=== PATIENT | male | born 1975 | race Caucasian/White ===

== ENCOUNTER 2020-02-26 12:45 | Inpatient (IN) ==
[2020-02-26] MEDS ORDERED: 0.9 % SODIUM CHLORIDE 1,000 ML IV ONE ×2 (13:07→17:31)
[2020-02-26] MEDS ORDERED: VANCOMYCIN 2,000 MG in 0.9 % SODIUM CHLORIDE 500 ML IV ONE (13:07)
[2020-02-26] MEDS ORDERED: PIPERACILLIN SODIUM/TAZOBACTAM 3.375 GM in DEXTROSE 5% IN WATER 50 ML IV ONE (13:07)
[2020-02-26] MEDS ORDERED: KETOROLAC 30 MG/ML VIAL IV ONE (13:07)
--- NOTE | 2020-02-26 13:12 | Emergency Department Note ---
Skin/Abscess/FB HPI General Chief complaint: Skin/Abscess/Foreign Body Stated complaint: cellulitis left leg Time Seen by Provider: 02/26/20 12:54 Source: patient Mode of arrival: ambulatory Limitations: no limitations History of Present Illness HPI Narrative: Narrative: 44-year-old male patient referred to the emergency department from the minor care clinic with chief complaint of cellulitis to the left lower extremity with possible sepsis. Patient noticed an area of redness, swelling, and pain to his left lower leg yesterday. He had considerable insect bites over the last several weeks. 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 Within the last 24 hours he developed some intermittent dizziness, mild shortness of b reath, and unsteadiness. This is what prompted him to come into the minor care for evaluation. He has a temperature of 102.8 in triage. He does admit to feeling feverish at home. He admits to feeling pinpoint tenderness to the lateral aspect of his thigh and up in his groin. He denies preceding trauma. ROS: Denies headaches, tinnitus, or vision changes. Denies runny nose, sinus congestion, or cough. Denies shortness of breath. Denies retrosternal chest pain or palpitations. Denies abdominal pain, nausea, vomiting, or diarrhea. Denies dysuria, hematuria, urinary frequency, or urinary urgency. Denies generalized or focal weakness. Related Data Home Medications Medication Instructions Recorded Confirmed multivitamin 1 tab PO QDAY 08/26/17 02/26/20 Previous Rx's Medication Instructions Recorded albuterol sulfate 90 mcg/actuation 90 mcg INHALATION Q6H PRN #18 g 04/29/19 aerosol inhaler CPAP machine #1 ea 08/18/19 testosterone cypionate 200 mg/mL 200 mg IM QWEEK #10 ml 12/16/19 intramuscular oil Allergies Allergy/AdvReac Type Severity Reaction Status Date / Time No Known Drug Allergies Allergy Verified 02/26/20 12:19 Review of Systems ROS ROS Narrative: Narrative: All systems ED: reviewed and negative except as stated. [facility] Narrative Patient History Narrative: Narrative: Medical/Surgical/Family History All Active Problems (Updated 02/26/20 @ 15:54 by Tim Renteria PA-C) Sepsis (Acute) Cellulitis (Acute) REM sleep behavior disorder (Chronic) Sleep apnea (Chronic) Hypoglycemia (Chronic) Low testosterone in male (Chronic) Elevated blood pressure reading (Acute) Fatigue (Chronic) Abnormal weight gain (Chronic ~2010) Rash (Chronic ~2010) Past history of chewing tobacco use (Chronic) Reflux esophagitis (Chronic ~2010) Lump of skin of back (Chronic ~2010) Swelling, mass, or lump in chest (Chronic ~2010) Hx of appendectomy (Chronic) Migraines (Chronic ~2012) Sinusitis, acute (Acute) Bronchitis (Acute) Medical History Abnormal weight gain (Chronic ~2010) Bronchitis (Acute) 04/29/2019 recent chest x-ray came back negative for pneumonia, discussed this with patient, encouraged him to obtain PFTs, increase fluids, rest, okay to use [id number] decongestants, discussed rationale for starting Flonase, can use albuterol if needed. for worsening symptoms recommend picking up doxycycline Hypoglycemia (Chronic) Low testosterone in male (Chronic) Lump of skin of back (Chronic ~2010) Migraines (Chronic ~2012) Past history of chewing tobacco use (Chronic) Rash (Chronic ~2010) On both knees Reflux esophagitis (Chronic ~2010) REM sleep behavior disorder (Chronic) Sinusitis, acute (Acute) Sleep apnea (Chronic) used CPAP in past, refer for sleep study Swelling, mass, or lump in chest (Chronic ~2010) Surgical History Hx of appendectomy (Chronic) 2011 Family History Unknown Unknown family medical history Pt. adopted Social History Smoking Status: Smokeless tobacco Alcohol Intake Frequency: a few times a week Substance Use: does not use Exam Narrative Narrative: Narrative: General Limitations: no limitations General appearance: other (Well-developed, well-nourished, morbidly obese 44-year-old male patient laying semirecumbent on the emergency room gurney in no acute respiratory distress. He is tachycardic at 117 and febrile at 102.8. This does quite to positive SIRS screening.) Head Head: atraumatic and normocephalic Eye Eye: Present normal appearance, PERRL and EOMI; Absent scleral icterus and conjunctival injection ENT ENT: Present normal oropharynx and mucous membranes moist Neck Neck: Present trachea midline; Absent lymphadenopathy Chest Chest: Present symmetric chest wall rise Respiratory Respiratory: Present normal lung sounds bilaterally; Absent respiratory distress, wheezes, stridor, accessory muscle use and prolonged expiratory phase Cardiovascular Cardiovascular: Present regular rate and normal rhythm; Absent systolic murmur and diastolic murmur Adbominal Abdominal: Present soft; Absent distention, tenderness, guarding, rebound, rigidity, organomegaly and mass Extremities Extremities: Present full ROM, tenderness, normal capillary refill and pedal apryl ma (Unilateral swelling to the left foot and ankle.); Absent normal inspection (Large area of erythema, warmth, and tenderness to the left lower extremity. Multiple small circular appearing skin lesions throughout the area. No active drainage. No bleeding. No excoriations.) and calf tenderness Expanded Lower Extremity Leg image: 1. Area of erythema/warmth 2. Area of erythema/warmth 3. Area of erythema/warmth 4. Area of pain 5. Area of pain Neurovascular/Tendon: Absent pulse deficit and motor deficit Gait: observed and normal Neurological Neurological: Present alert and oriented X3 Psychiatric Psychiatric: Present normal affect and normal mood Skin Skin: Present warm, dry and normal color Course Course Course Narrative: Patient has considerable area of erythema, warmth, and swelling to the left lower extremity. He has tachycardia and fever here in triage and meets SIRS criteria. With this in mind, we are going to order additional laboratory studies looking for sepsis. Patient has discrete pinpoint areas of tenderness throughout his upper leg swelling going to order an ultrasound to rule out DVT to these areas. Patient will be given vancomycin 2000 mg and Zosyn 3.337 g IV. We will treat the patient's pain with Toradol 30 mg IVP. Patient was given normal saline 1000 mL as a bolus. Reevaluation(s) Reevaluation #1: Review the patient's diagnostics show the following: CBC WBC 16.7, RBC 5.49, hemoglobin 16.3, hematocrit 48.3, platelet 220. Lactic acid 1.1. CMP creatinine 1.4, glucose 115, all others normal limits. C-reactive protein 22.3. UA showing clear yellow urine with specific gravity 1.027, positive proteinuria, positive RBC, no C&S indicated. Left lower extremity venous duplex study showing no evidence of DVT. Upon reevaluation patient is resting comfortably on the emergency room gurney. He mentions that he is feeling "slightly better". After reviewing all the data I discussed these findings. He does meet sepsis criteria with the elevated WBC, tachycardia, and fever. With this in mind, going to reach out to the hospitalist (Dr. Feliciano) to determine if the patient meets admissions criteria or if he can be treated as an outpatient. Time: 14:56 Reevaluation #2: Dr. Feliciano says he will admit the patient to the facility for ongoing treatment of sepsis. I explained to the patient who verbalized understanding. At this time Dr. Brand assumed overall patient care. All further treatment decisions, modalities, and ultimate patient disposition will be carried out by Dr. Feliciano. Time: 15:51 Vital Signs Vital signs: Vital Signs Temperature 102.8 F H 02/26/20 12:47 Pulse Rate 117 H 02/26/20 12:47 Respiratory Rate 18 02/26/20 12:47 Blood Pressure 152/79 02/26/20 12:47 Pulse Oximetry (%) 95 02/26/20 12:47 Temperature 102.8 F H 02/26/20 12:47 Pulse Rate 112 H 02/26/20 13:46 Respiratory Rate 18 02/26/20 12:47 Blood Pressure 129/84 02/26/20 13:46 Pulse Oximetry (%) 92 02/26/20 13:46 MDM MDM Narrative Medical decision making narrative: Narrative: Lab Data Lab results reviewed: Yes I reviewed the patient's lab results. Result diagrams: 02/26/20 13:15 02/26/20 13:15 Labs: Lab Results 02/26/20 02/26/20 02/26/20 Range/Units 13:00 13:15 13:15 WBC 16.7 H (4.50-11.00) K/mcL RBC 5.49 (4.63-6.08) M/mcL Hgb 16.3 (13.7-17.5) g/dL Hct 48.3 (40.1-51.0) % MCV 88.0 (80.0-100.0) fL MCH 29.7 (26.0-34.0) pg MCHC 33.7 (31.0-36.0) g/dL RDW 12.8 (11.5-14.5) % Plt Count 220 (140-440) K/mcL MPV 9.5 (7.4-10.4) fL Gran % 91.1 H (38.0-78.0) % Lymph % (Auto) 3.6 L (15.5-49.0) % Owsley % (Auto) 4.8 (1.0-12.0) % Eos % (Auto) 0.3 (0.0-7.0) % Baso % (Auto) 0.2 (0.0-2.0) % Gran # 15.19 H (1.80-8.00) K/mcL Lymph # (Auto) 0.60 L (1.50-4.80) K/mcL Owsley # (Auto) 0.80 (0.10-0.90) K/mcL Eos # (Auto) 0.05 (0.00-0.70) K/mcL Baso # (Auto) 0.03 (0.00-0.30) K/mcL VBG Lactic Acid (0.5-2.0) mmol/L Sodium 135 (133-145) mmol/L Potassium 3.8 (3.3-5.1) mmol/L Chloride 96 (96-108) mmol/L Carbon Dioxide 25 (22-30) mmol/L Anion Gap 14.0 (8-16) BUN 17 (6-20) mg/dl Creatinine 1.4 H (0.7-1.2) mg/dl GFR Calculation 60 Glucose 115 H (70-105) mg/dL Calcium 9.3 (8.6-10.4) mg/dl Total Bilirubin 0.8 (0.0-1.0) mg/dL AST 23 (0-37) U/l ALT 31 (0-40) U/l Alkaline Phosphatase 51 (39-117) U/L C-Reactive Protein 22.3 H (0.0-0.8) mg/dl Total Protein 7.3 (5.9-8.4) gm/dL Albumin 4.3 (3.2-5.2) gm/dL Globulin 3.0 (2.2-3.7) gm/dL Albumin/Globulin Ratio 1.4 (1.0-2.3) Urine Color Yellow Urine Appearance Clear Urine pH 7.0 (5.0-9.0) Ur Specific [place] 1.027 (1.000-1.035) Urine Protein 30 A (NEG) mg/dL Urine Glucose (UA) Negative (NEG) mg/dL Urine Ketones Neg (NEG) mg/dL Urine Occult Blood Neg (<0.03) mg/dL Urine Nitrate Neg (NEG) Urine Bilirubin Neg (NEG) mg/dL Urine Urobilinogen Neg (NEG) mg/dL Ur Leukocyte Esterase Neg (NEG) /uL Urine RBC 2 H (0-1) /hpf Urine WBC 4 (0-4) /hpf Ur Squamous Epith Cells < 1 (0-4) /hpf Urine Bacteria 0 (0) /hpf Ur Culture Indicated? No 02/26/20 Range/Units 13:17 WBC (4.50-11.00) K/mcL RBC (4.63-6.08) M/mcL Hgb (13.7-17.5) g/dL Hct (40.1-51.0) % MCV (80.0-100.0) fL MCH (26.0-34.0) pg MCHC (31.0-36.0) g/dL RDW (11.5-14.5) % Plt Count (140-440) K/mcL MPV (7.4-10.4) fL Gran % (38.0-78.0) % Lymph % (Auto) (15.5-49.0) % Ows[place] % (Auto) (1.0-12.0) % Eos % (Auto) (0.0-7.0) % Baso % (Auto) (0.0-2.0) % Gran # (1.80-8.00) K/mcL Lymph # (Auto) (1.50-4.80) K/mcL Owsley # (Auto) (0.10-0.90) K/mcL Eos # (Auto) (0.00-0.70) K/mcL Baso # (Auto) (0.00-0.30) K/mcL VBG Lactic Acid 1.1 (0.5-2.0) mmol/L Sodium (133-145) mmol/L Potassium (3.3-5.1) mmol/L Chloride (96-108) mmol/L Carbon Dioxide (22-30) mmol/L Anion Gap (8-16) BUN (6-20) mg/dl Creatinine (0.7-1.2) mg/dl GFR Calculation Glucose (70-105) mg/dL Calcium (8.6-10.4) mg/dl Total Bilirubin (0.0-1.0) mg/dL AST (0-37) U/l ALT (0-40) U/l Alkaline Phosphatase (39-117) U/L C-Reactive Protein (0.0-0.8) mg/dl Total Protein (5.9-8.4) gm/dL Albumin (3.2-5.2) gm/dL Globulin (2.2-3.7) gm/dL Albumin/Globulin Ratio (1.0-2.3) Urine Color Urine Appearance Urine pH (5.0-9.0) Ur Specific [place] (1.000-1.035) Urine Protein (NEG) mg/dL Urine Glucose (UA) (NEG) mg/dL Urine Ketones (NEG) mg/dL Urine Occult Blood (<0.03) mg/dL Urine Nitrate (NEG) Urine Bilirubin (NEG) mg/dL Urine Urobilinogen (NEG) mg/dL Ur Leukocyte Esterase (NEG) /uL Urine RBC (0-1) /hpf Urine WBC (0-4) /hpf Ur Squamous Epith Cells (0-4) /hpf Urine Bacteria (0) /hpf Ur Culture Indicated? Radiology Data Radiology results reviewed: Yes I reviewed the patient's radiology results. Radiology results narrative: Ordering Physician: Tim Renteria PA-C Date of Service: 02/26/20 Procedure(s): US venous duplex LE Accession Number(s): [id number] CLINICAL INFORMATION: Leg pain and swelling COMPARISON: None. FINDINGS: The entire deep venous system including the common femoral, superficial femoral, popliteal and paired trifurcation calf veins are easily compressible and show normal venous blood flow on color and spectral Doppler. No evidence of thrombus IMPRESSION: Negative exam - no evidence of deep vein thrombosis. Interpreted and Authenticated by: Arash Flores 02/26/20 Discharge Plan Patient/Caregiver Discharge Instructions Pt seen by [employer] OFFICER/PA only: Yes Clinical Impression: Sepsis, Cellulitis Patient Disposition: Xfer As Inpt ([facility]) Condition: Good Follow up with: Arash Barber DO [Primary Care Provider] - Prescriptions: No Action (DME) CPAP machine Qty: 1 RF: 0 testosterone cypionate 200 mg/mL oil 200 mg IM QWEEK Qty: 10 RF: 0 albuterol sulfate 90 mcg/actuation HFA aerosol inhaler 90 mcg inhalation Q6H PRN (Reason: shortness of breath) Qty: 18 RF: 0 multivitamin tablet 1 tab PO QDAY RF: 0
[2020-02-26 14:17] LABS: Basophils # (Auto) 0.03 K/mcL (0.00-0.30); Basophils % (Auto) 0.2 % (0.0-2.0); Eosinophils # (Auto) 0.05 K/mcL (0.00-0.70); Eosinophils % (Auto) 0.3 % (0.0-7.0); Granulocytes % (Auto) 91.1 % (38.0-78.0); Hematocrit 48.3 % (40.1-51.0); Hemoglobin 16.3 g/dL (13.7-17.5); Lymphocytes % (Auto) 3.6 % (15.5-49.0); Mean Corpuscular HGB Conc 33.7 g/dL (31.0-36.0); Mean Platelet Volume 9.5 fL (7.4-10.4); Monocytes % (Auto) 4.8 % (1.0-12.0); Platelet Count 220 K/mcL (140-440); RBC 5.49 M/mcL (4.63-6.08); Red Cell Distribution Width 12.8 % (11.5-14.5); WBC 16.7 K/mcL (4.50-11.00)
[2020-02-26 14:26] LABS: Appearance,Urine CLEAR; Bacteria,Urine 0 /hpf (0); Bilirubin,Urine NEG (NEG); Color,Urine YELLOW; Culture Indicated,Urine NO; Glucose,Urine (UA) NEGATIVE (NEG); Ketones,Urine NEG (NEG); Leukocyte Esterase,Urine NEG /uL (NEG); Nitrate,Urine NEG (NEG); Protein,Urine 30 mg/dL (NEG); Specific Gravity,Urine 1.027 (1.000-1.035); Urine Blood NEG mg/dL (<0.03); Urine RBC 2 /hpf (0-1); Urine Squamous Epithelial Cell < 1 /hpf (0-4); Urine WBC 4 /hpf (0-4); Urobilinogen,Urine NEG (NEG)
[2020-02-26 14:46] LABS: ALT/SGPT 31 U/l (0-40); AST/SGOT 23 U/l (0-37); Albumin 4.3 gm/dL (3.2-5.2); Albumin/Globulin Ratio 1.4 (1.0-2.3); Alkaline Phosphatase 51 U/L (39-117); Bilirubin,Total 0.8 mg/dL (0.0-1.0); Blood Urea Nitrogen 17 mg/dl (6-20); C-Reactive Protein 22.3 mg/dl (0.0-0.8); Calcium 9.3 mg/dl (8.6-10.4); Carbon Dioxide 25 mmol/L (22-30); Chloride 96 mmol/L (96-108); Glomerular Filtration Rate 60; Glucose 115 mg/dL (70-105)
[2020-02-26] MEDS ORDERED: ACETAMINOPHEN 325 MG TABLET PO ONE (14:55)
--- NOTE | 2020-02-26 15:04 | Ultrasound Report ---
CLINICAL INFORMATION: Leg pain and swelling COMPARISON: None. FINDINGS: The entire deep venous system including the common femoral, superficial femoral, popliteal and paired trifurcation calf veins are easily compressible and show normal venous blood flow on color and spectral Doppler. No evidence of thrombus IMPRESSION: Negative exam - no evidence of deep vein thrombosis. Interpreted and Authenticated by: Arash Flores 02/26/20
--- NOTE | 2020-02-26 15:34 | Internal Med History&Physical ---
HPI History of Present Illness Patient information: Note initiated : 02/26/20 at 3:34 pm Service Date, if different from initiated Date: [] Patient: Patrick Morales a 44 y/o M admitted on for cellulitis left leg. Chief Complaint: [] History of present illness: Mr. Morales is a 44 year old M previously healthy with no significant prior medical history other than asthma presents to the ER with 2-day onset of worsening left lower extremity pain and swelling and over the last 24 hours relentless shaking chills, sweats, fever lightheadedness and weakness. Patient was camping in [place] few days ago and endorses to multiple bug bites lower extremity. Over the next few days he noticed increasing redness, blistering, pain along with a fever as high as 103. He presented to the [facility] and was referred to the ER for further evaluation for possible sepsis/cellulitis lymphangitis Initial work-up was consistent with sepsis with tachycardia, tachypnea/fever/white count 16.7 with endorgan dysfunction with creatinine 1.4. Antibiotics were initiated , midway during antibiotic infusion blood cultures were obtained Hospitalist service was consulted for admission. At the time evaluation patient is accompanied with his . He endorses history as above. Denies diarrhea, bloody stool, chest pain, palpitation, skin rash. Denies substance abuse Review of systems 10 point review system was performed and is negative except for ones discussed above [facility] Medical History Abnormal weight gain (Chronic ~2010) Bronchitis (Acute) 04/29/2019 recent chest x-ray came back negative for pneumonia, discussed this with patient, encouraged him to obtain PFTs, increase fluids, rest, okay to use [id number] decongestants, discussed rationale for starting Flonase, can use albuterol if needed. for worsening symptoms recommend picking up doxycycline Hypoglycemia (Chronic) Low testosterone in male (Chronic) Lump of skin of back (Chronic ~2010) Migraines (Chronic ~2012) Past history of chewing tobacco use (Chronic) Rash (Chronic ~2010) On both knees Reflux esophagitis (Chronic ~2010) REM sleep behavior disorder (Chronic) Sinusitis, acute (Acute) Sleep apnea (Chronic) used CPAP in past, refer for sleep study Swelling, mass, or lump in chest (Chronic ~2010) Surgical History Hx of appendectomy (Chronic) 2011 Family History Unknown Unknown family medical history Pt. 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 smoking status: Smokeless tobacco alcohol intake frequency: a few times a week substance use type: does not use MEDS/ALLERGIES Home Medications and Allergies Home Medications Medication Instructions Recorded Confirmed Type multivitamin 1 tab PO QDAY 08/26/17 02/26/20 History albuterol sulfate 90 mcg/actuation 90 mcg INHALATION Q6H PRN #18 g 04/29/19 02/26/20 Rx aerosol inhaler CPAP machine #1 ea 08/18/19 02/26/20 Rx testosterone cypionate 200 mg/mL 200 mg IM QWEEK #10 ml 12/16/19 02/26/20 Rx intramuscular oil Allergies Allergy/AdvReac Type Severity Reaction Status Date / Time No Known Drug Allergies Allergy Verified 02/26/20 12:19 EXAM Constitutional Vitals: Temp Pulse Resp BP Pulse Ox 102.8 F H 112 H 18 129/84 92 02/26/20 12:47 02/26/20 13:46 02/26/20 12:47 02/26/20 13:46 02/26/20 13:46 Head normocephalic Oral cavity moist No ear nose discharge Eye movement symmetrical Neck supple no lymphadenopathy S1-S2 tachycardia Nonlabored breathing Nondistended nontender abdomen Left lower extremity lower one third significant redness/area of impetigo is skin changes. No cyanosis clubbing or joint swelling Skin no other suspicious lesion Psych alert cooperative Neuro normal higher function DATA Data Completed and Pending Labs on day of discharge: Labs from last 24 hours 02/26/20 02/26/20 02/26/20 13:17 13:15 13:15 WBC 16.7 H RBC 5.49 Hgb 16.3 Hct 48.3 MCV 88.0 MCH 29.7 MCHC 33.7 RDW 12.8 Plt Count 220 MPV 9.5 Gran % 91.1 H Lymph % (Auto) 3.6 L [place] % (Auto) 4.8 Eos % (Auto) 0.3 Baso % (Auto) 0.2 Gran # 15.19 H Lymph # (Auto) 0.60 L [place] # (Auto) 0.80 Eos # (Auto) 0.05 Baso # (Auto) 0.03 VBG Lactic Acid 1.1 Sodium 135 Potassium 3.8 Chloride 96 Carbon Dioxide 25 Anion Gap 14.0 BUN 17 Creatinine 1.4 H GFR Calculation 60 Glucose 115 H Calcium 9.3 Total Bilirubin 0.8 AST 23 ALT 31 Alkaline Phosphatase 51 C-Reactive Protein 22.3 H Total Protein 7.3 Albumin 4.3 Globulin 3.0 Albumin/Globulin Ratio 1.4 Urine Color Urine Appearance Urine pH Ur Specific Dawson Urine Protein Urine Glucose (UA) Urine Ketones Urine Occult Blood Urine Nitrate Urine Bilirubin Urine Urobilinogen Ur Leukocyte Esterase Urine RBC Urine WBC Ur Squamous Epith Cells Urine Bacteria Ur Culture Indicated? 02/26/20 13:00 WBC RBC Hgb Hct MCV MCH MCHC RDW Plt Count MPV Gran % Lymph % (Auto) [place] % (Auto) Eos % (Auto) Baso % (Auto) Gran # Lymph # (Auto) [place] # (Auto) Eos # (Auto) Baso # (Auto) VBG Lactic Acid Sodium Potassium Chloride Carbon Dioxide Anion Gap BUN Creatinine GFR Calculation Glucose Calcium Total Bilirubin AST ALT Alkaline Phosphatase C-Reactive Protein Total Protein Albumin Globulin Albumin/Globulin Ratio Urine Color Yellow Urine Appearance Clear Urine pH 7.0 Ur Specific Dawson 1.027 Urine Protein 30 A Urine Glucose (UA) Negative Urine Ketones Neg Urine Occult Blood Neg Urine Nitrate Neg Urine Bilirubin Neg Urine Urobilinogen Neg Ur Leukocyte Esterase Neg Urine RBC 2 H Urine WBC 4 Ur Squamous Epith Cells < 1 Urine Bacteria 0 Ur Culture Indicated? No A/P Narrative A/P Narrative: * Severe sepsis with endorgan dysfunction-16.7 white count, elevated creatinine. Management guidelines. Crystalloid/pressors if indicated. Await blood cultures * Left lower external cellulitis/lymphangitis-likely streptococcal. Empiric antibiotic coverage on Zosyn vancomycin and de-escalate based on cultures * ANNABELLA-secondary sepsis endorgan dysfunction. Continue monitoring. Crystalloids. Avoid nephrotoxins * Localized pain as needed Tylenol/opioid * Prophylaxis heparin Plan * Inpatient admission * Sepsis management guidelines * Monitor renal function * Broad antibiotic coverage and de-escalate based on cultures Time Spent With Patient Time: Total time spent is greater than 50% in coordination of care (as documented) at patient's floor/unit and/or counseling patient:
[2020-02-26] MEDS ORDERED: NOREPINEPHRINE BITARTRATE 16 MG in 0.9 % SODIUM CHLORIDE 234 ML IV PRN (16:57)
[2020-02-26] MEDS ORDERED: MAGNESIUM SULFATE 2 GM/50 ML BAG IV PRN (16:57)
[2020-02-26] MEDS ORDERED: POLYETHYLENE GLYCOL 3350 17 GM PACKET PO PRN (16:57)
[2020-02-26] MEDS ORDERED: ONDANSETRON 4 MG/2 ML VIAL IV PRN (16:57)
[2020-02-26] MEDS ORDERED: VANCOMYCIN PER PHARMACY IV SCH (16:57)
[2020-02-26] MEDS ORDERED: POTASSIUM CHLORIDE 20 MEQ PACKET PO PRN (16:57)
[2020-02-26] MEDS ORDERED: METOPROLOL TARTRATE 5 MG/5 ML VIAL IV PRN (16:57)
[2020-02-26] MEDS ORDERED: ACETAMINOPHEN 650 MG/65 ML BOTTLE IV PRN (16:57)
[2020-02-26] MEDS ORDERED: BISACODYL 10 MG SUPP.RECT PR PRN (16:57)
[2020-02-26] MEDS ORDERED: HYDROcodone/APAP 5/325MG TABLET PO PRN (16:57)
[2020-02-26] MEDS ORDERED: ONDANSETRON 4 MG ODT TABLET SL PRN (16:57)
[2020-02-26] MEDS ORDERED: ALBUTEROL SULFATE 200 PUFF INHALER INH PRN (16:57)
[2020-02-26] MEDS ORDERED: MELATONIN 3 MG TABLET PO PRN (16:57)
[2020-02-26 18:00] LABS: Hemoglobin A1C 5.8 % HGB (4.0-6.0)
[2020-02-26] MEDS: PIPERACILLIN SODIUM/TAZOBACTAM 3.375 GM in DEXTROSE 5% IN WATER 50 ML IV SCH (18:48)
[2020-02-26] MEDS: 0.9 % SODIUM CHLORIDE 1,000 ML IV SCH (18:49)
[2020-02-26] MEDS: DOCUSATE SODIUM 100 MG CAPSULE PO SCH (20:12)
[2020-02-26] MEDS: SENNOSIDES/DOCUSATE SODIUM 1 TAB TABLET PO SCH (20:12)
[2020-02-26] MEDS: 0.9 % SODIUM CHLORIDE 10 ML SYRINGE IV SCH (20:12)
[2020-02-26] MEDS: HEPARIN 5,000 UNIT/ML VIAL SQ SCH (20:16)
[2020-02-26] MEDS: ACETAMINOPHEN 325 MG TABLET PO PRN (20:26)
[2020-02-27] MEDS: PIPERACILLIN SODIUM/TAZOBACTAM 3.375 GM in DEXTROSE 5% IN WATER 50 ML IV SCH ×5 (00:54→23:48)
[2020-02-27] MEDS: ACETAMINOPHEN 325 MG TABLET PO PRN ×2 (05:18→15:53)
[2020-02-27] MEDS: 0.9 % SODIUM CHLORIDE 10 ML SYRINGE IV SCH ×3 (05:25→21:58)
[2020-02-27 06:52] LABS: Mean Cell Volume 92.1 fL (80.0-100.0); Mean Corpuscular HGB Conc 32.6 g/dL (31.0-36.0); Mean Platelet Volume 9.6 fL (7.4-10.4); Platelet Count 181 K/mcL (140-440); RBC 4.67 M/mcL (4.63-6.08); Red Cell Distribution Width 13.1 % (11.5-14.5); WBC 16.2 K/mcL (4.50-11.00)
[2020-02-27 07:04] LABS: Bilirubin,Direct < 0.2 mg/dL (0.0-0.3); Chloride 101 mmol/L (96-108)
[2020-02-27 07:06] LABS: ALT/SGPT 24 U/l (0-40); AST/SGOT 22 U/l (0-37); Albumin 3.3 gm/dL (3.2-5.2); Albumin/Globulin Ratio 1.1 (1.0-2.3); Alkaline Phosphatase 49 U/L (39-117); Bilirubin,Total 0.7 mg/dL (0.0-1.0); Blood Urea Nitrogen 14 mg/dl (6-20); Calcium 8.2 mg/dl (8.6-10.4); Carbon Dioxide 19 mmol/L (22-30); Glomerular Filtration Rate 66; Glucose 105 mg/dL (70-105); Lactate Dehydrogenase 245 U/L (94-250); Triglycerides 84 mg/dl (<150); Uric Acid 4.7 mg/dL (2.5-8.0)
[2020-02-27] MEDS ORDERED: NOREPINEPHRINE BITARTRATE 16 MG in 0.9 % SODIUM CHLORIDE 234 ML IV PRN (07:45)
[2020-02-27 08:17] LABS: Lymphocytes % 3 % (15-49); Monocytes % (Manual) 2 % (1-12); Platelet Estimate NORMAL (NORMAL); RBC Morphology NORMAL (NORMAL); Segmented Neutrophils % 95 % (38-78)
[2020-02-27] MEDS: HEPARIN 5,000 UNIT/ML VIAL SQ SCH ×2 (08:48→20:43)
[2020-02-27] MEDS: MULTIVIT,THER IRON,CA,FA & MIN 1 TABLET PO SCH (08:48)
[2020-02-27] MEDS: DOCUSATE SODIUM 100 MG CAPSULE PO SCH ×2 (08:49→19:39)
[2020-02-27] MEDS: VANCOMYCIN 1,500 MG in 0.9 % SODIUM CHLORIDE 500 ML IV SCH ×2 (10:12→20:43)
--- NOTE | 2020-02-27 11:11 | Internal Med Progress Note ---
SUBJECTIVE Subjective Patient information: Note initiated : 02/27/20 at 11:08 am Service Date, if different from initiated Date: [] Patient: Patrick Morales a 44 y/o M admitted on 02/26/20 for cellulitis left leg. Chief Complaint: [] History of present illness: Mr. Morales is a 44 year old M previously healthy with no significant prior medical history other than asthma presents to the ER with 2-day onset of worsening left lower extremity pain and swelling and over the last 24 hours relentless shaking chills, sweats, fever lightheadedness and weakness. Patient was camping in [place] few days ago and endorses to multiple bug bites lower extremity. Over the next few days he noticed increasing redne ss, blistering, pain along with a fever as high as 103. He presented to the [facility] care and was referred to the ER for further evaluation for possible sepsis/cellulitis lymphangitis Initial work-up was consistent with sepsis with tachycardia, tachypnea/fever/white count 16.7 with endorgan dysfunction with creatinine 1.4. Antibiotics were initiated , midway during antibiotic infusion blood cultures were obtained Hospitalist service was consulted for admission. At the time evaluation patient is accompanied with his . He endorses history as above. Denies diarrhea, bloody stool, chest pain, palpitation, skin rash. Denies substance abuse 02/26-patient doing well. No overnight events. Improved tenderness vein tachycardia. Drenching sweats overnight. T-max 101. Cultures negative so far. White count 16.2. Improved renal function creatinine 1.3. Improving appetite. Able to ambulate. Continue antibiotic coverage. Will de-escalate based on culture results. at bedside. Discussed treatment plan. Constitutional Vitals: Vital Signs Temp Pulse Resp BP Pulse Ox 100.5 F H 82 20 143/57 93 02/27/20 05:18 02/27/20 08:05 02/27/20 06:01 02/27/20 06:01 02/27/20 08:05 Period Temp Pulse Resp BP Sys/Alcantara Pulse Ox Last 24 Hr 98.2 F-102.8 F 82-117 14-24 101-152/50-96 91-99 Intake and Output 02/26/20 02/27/20 02/27/20 21:59 05:59 13:59 Intake Total 2100 1050 530 Output Total 350 600 alert oriented balance 1750 450 530 Weight 131.995 kg alert and oriented no anxiety Nonlabored breathing Improved left lower extremity tenderness erythema Intake & Output: Intake & Output 02/26/20 02/27/20 02/27/20 21:59 05:59 13:59 Intake Total 2100 1050 530 Output Total 350 600 Balance 1750 450 530 Weight 131.995 kg Intake: IV 2100 550 50 Sodium Chloride 0.9% 1,000 ml @ 2000 Wide Open IV BOLUS ONE Rx#: [id number] Zosyn 3.375 gm In Dextrose 5% 100 50 50 in Water 50 ml @ 100 mls/hr IV Q6H [facility] Rx#:[id number] Vancomycin 2,000 mg In Sodium 500 Chloride 0.9% 500 ml @ 250 mls/ hr IV ONCE ONE Rx#:[id number] Oral 500 480 Output: Void Amount 350 600 Other: Meal Dinner Breakfast Percent of Meal Consumed 50% 75% Urine Appearance Clear Clear Urine Color Light Valeria Dark Yellow OBJ DATA Labs CBC & Chem 7: 02/27/20 05:10 02/27/20 05:10 Labs: Abnormal Lab Results 02/27/20 02/27/20 02/26/20 05:10 05:10 13:15 WBC 16.2 H Gran % Lymph % (Auto) Gran # Lymph # (Auto) Seg Neutrophils % 95 H Lymphocytes % 3 L Carbon Dioxide 19 L Creatinine 1.3 H 1.4 H Glucose 115 H Calcium 8.2 L Phosphorus 2.0 L C-Reactive Protein 22.3 H Urine Protein Urine RBC 02/26/20 02/26/20 13:15 13:00 WBC 16.7 H Gran % 91.1 H Lymph % (Auto) 3.6 L Gran # 15.19 H Lymph # (Auto) 0.60 L Seg Neutrophils % Lymphocytes % Carbon Dioxide Creatinine Glucose Calcium Phosphorus C-Reactive Protein Urine Protein 30 A Urine RBC 2 H Meds: Medications Acetaminophen (Tylenol) 650 mg PO Q4-6HP PRN; Protocol PRN Reason: Per Pain Protocol/Fever > 101 Last Admin: 02/27/20 05:18 Dose: 650 mg Documented by: Hydrocodone Bitart/Acetaminophen ([place] 5/325mg) 0 tab PO Q4HP PRN; Protocol PRN Reason: Per Pain Protocol Albuterol Sulfate (Ventolin) 1 puff INH Q6HP PRN PRN Reason: shortness of breath Bisacodyl (Dulcolax) 10 mg UT Q2-3DAYS PRN PRN Reason: Constipation Docusate Sodium (Colace) 100 mg PO BID [facility] Last Admin: 02/27/20 08:49 Dose: Not Given Documented by: Heparin Sodium (Porcine) (Heparin) 5,000 unit SQ Q12 [facility] Last Admin: 02/27/20 08:48 Dose: 5,000 unit Documented by: Magnesium Sulfate (Magnesium Sulfate) 2 gm in 50 mls @ 50 mls/hr IV UD PRN PRN Reason: MG = or < 1.7 Acetaminophen (Ofirmev) 650 mg in 65 mls @ 130 mls/hr IV Q6HP PRN; Protocol PRN Reason: Per Pain Protocol/Fever > 101 Piperacillin Sod/Tazobactam (Sod 3.375 gm/ Dextrose) 50 mls @ 100 mls/hr IV Q6H [facility]; Protocol Last Infusion: 02/27/20 06:37 Dose: Infused Documented by: Sodium Chloride (Sodium Chloride 0.9%) 1,000 mls @ 50 mls/hr IV .Q20H [facility] Last Admin: 02/26/20 18:49 Dose: 50 mls/hr Documented by: Norepinephrine Bitartrate 16 (mg/ Sodium Chloride) 250 mls @ 9.375 mls/hr IV Q24HP PRN; Protocol PRN Reason: MAP<65 Vancomycin HCl 1,500 mg/ (Sodium Chloride) 500 mls @ 333.3 mls/hr IV Q12H [facility] Last Admin: 02/27/20 10:12 Dose: 250 mls/hr Documented by: Iron Carb/Multivit/Glass Bulb Silverer/Folic Acid (Multivitamin W/Minerals) 1 tab PO DAILY [facility] Last Admin: 02/27/20 08:48 Dose: 1 tab Documented by: Melatonin (Melatonin 3mg Tablet) 3 mg PO HSP PRN PRN Reason: Insomnia Metoprolol Tartrate (Lopressor) 5 mg IV Q5M PRN PRN Reason: Heart Rate > 140 bpm Ondansetron HCl (Zofran Odt) 4 mg SL Q4-6HP PRN; Protocol PRN Reason: Nausea And Vomiting Ondansetron HCl (Zofran) 4 mg IV Q4-6HP PRN; Protocol PRN Reason: Nausea And Vomiting Polyethylene Glycol (Miralax) 17 gm PO DAILYP PRN PRN Reason: Constipation Potassium Chloride (Klor-Con) 40 meq PO DAILYP PRN PRN Reason: K+ < 3.5 Senna/Docusate Sodium (Senna Plus Tablet) 1 tab PO HS [facility] Last Admin: 02/26/20 20:12 Dose: Not Given Documented by: Sodium Chloride (Saline Flush) 10 ml IV Q8 [facility] Last Admin: 02/27/20 05:25 Dose: Not Given Documented by: Vancomycin HCl (Vancomycin Per Pharmacy) 1 order IV UD [facility]; Protocol A/P Narrative A/P Narrative: * Severe sepsis with endorgan dysfunction-White count improving. Improving endorgan dysfunction. * Left lower extremity cellulitis/lymphangitis-likely streptococcal. Clinical improvement noted on empiric antibiotic coverage on Zosyn vancomycin. Await cultures * ANNABELLA-secondary sepsis endorgan dysfunction. Improving renal function. * Localized pain well controlled on as needed Tylenol/opioid * Prophylaxis heparin Plan * Antibiotic coverage * Monitor renal function * Broad antibiotic coverage and de-escalate based on cultures * Nutrition support/ambulation Time Spent With Patient Time: Total time spent is greater than 50% in coordination of care (as documented) at patient's floor/unit and/or counseling patient: Total time spent with greater than 50% in coordination of care (as documented) at patient's floor/unit and/or counseling patient:: Greater than 35 minutes QUALITY VTE Deep Vein Thrombosis/Pulmonary Embolism Present on Admission: No
[2020-02-27] MEDS: 0.9 % SODIUM CHLORIDE 1,000 ML IV SCH (17:43)
[2020-02-27] MEDS: SENNOSIDES/DOCUSATE SODIUM 1 TAB TABLET PO SCH (19:40)
[2020-02-27] MEDS: IBUPROFEN 200 MG TABLET PO SCH (21:57)
[2020-02-28] MEDS: PIPERACILLIN SODIUM/TAZOBACTAM 3.375 GM in DEXTROSE 5% IN WATER 50 ML IV SCH ×3 (05:28→19:40)
[2020-02-28] MEDS: 0.9 % SODIUM CHLORIDE 10 ML SYRINGE IV SCH ×3 (05:28→20:13)
[2020-02-28] MEDS: ACETAMINOPHEN 325 MG TABLET PO PRN ×2 (05:31→15:24)
[2020-02-28 06:26] LABS: Hematocrit 45.7 % (40.1-51.0); Hemoglobin 14.7 g/dL (13.7-17.5); Mean Cell Volume 91.6 fL (80.0-100.0); Mean Corpuscular HGB Conc 32.2 g/dL (31.0-36.0); Mean Platelet Volume 9.1 fL (7.4-10.4); Platelet Count 191 K/mcL (140-440); RBC 4.99 M/mcL (4.63-6.08); Red Cell Distribution Width 13.3 % (11.5-14.5); WBC 12.1 K/mcL (4.50-11.00)
[2020-02-28 06:46] LABS: ALT/SGPT 40 U/l (0-40); AST/SGOT 25 U/l (0-37); Albumin 3.3 gm/dL (3.2-5.2); Alkaline Phosphatase 52 U/L (39-117); Bilirubin,Direct < 0.2 mg/dL (0.0-0.3); Bilirubin,Total 0.4 mg/dL (0.0-1.0); Blood Urea Nitrogen 10 mg/dl (6-20); Calcium 8.5 mg/dl (8.6-10.4); Chloride 102 mmol/L (96-108); Globulin 3.2 gm/dL (2.2-3.7); Glomerular Filtration Rate 73; Glucose 106 mg/dL (70-105); Lactate Dehydrogenase 184 U/L (94-250); Triglycerides 127 mg/dl (<150); Uric Acid 3.4 mg/dL (2.5-8.0)
[2020-02-28 06:47] LABS: Carbon Dioxide 25 mmol/L (22-30); Phosphorous 2.2 mg/dL (2.7-4.5)
[2020-02-28 08:23] LABS: Band Neutrophils % 2 % (0-10); Lymphocytes % 5 % (15-49); Monocytes % (Manual) 5 % (1-12); Platelet Estimate NORMAL (NORMAL); RBC Morphology NORMAL (NORMAL); Reactive Lymphocytes 1 % (0-2); Segmented Neutrophils % 87 % (38-78)
[2020-02-28] MEDS: DOCUSATE SODIUM 100 MG CAPSULE PO SCH ×2 (08:29→20:12)
[2020-02-28] MEDS: IBUPROFEN 200 MG TABLET PO SCH ×3 (08:38→20:11)
[2020-02-28] MEDS: MULTIVIT,THER IRON,CA,FA & MIN 1 TABLET PO SCH (08:38)
[2020-02-28] MEDS: HEPARIN 5,000 UNIT/ML VIAL SQ SCH ×2 (08:39→20:10)
[2020-02-28] MEDS: VANCOMYCIN 1,500 MG in 0.9 % SODIUM CHLORIDE 500 ML IV SCH ×4 (10:20→22:04)
--- NOTE | 2020-02-28 10:22 | Internal Med Progress Note ---
SUBJECTIVE Subjective Patient information: Note initiated : 02/28/20 at 10:20 am Service Date, if different from initiated Date: [] Patient: Patrick Morales a 44 y/o M admitted on 02/26/20 for cellulitis left leg. Chief Complaint: History of present illness: Mr. Morales is a 44 year old M previously healthy with no significant prior medical history other than asthma presents to the ER with 2-day onset of worsening left lower extremity pain and swelling and over the last 24 hours relentless shaking chills, sweats, fever lightheadedness and weakness. Patient was camping in [place] few days ago and endorses to multiple bug bites lower extremity. Over the next few days he noticed increasing redness , blistering, pain along with a fever as high as 103. He presented to the [facility] care and was referred to the ER for further evaluation for possible sepsis/cellulitis lymphangitis Initial work-up was consistent with sepsis with tachycardia, tachypnea/fever/white count 16.7 with endorgan dysfunction with creatinine 1.4. Antibiotics were initiated , midway during antibiotic infusion blood cultures were obtained Hospitalist service was consulted for admission. At the time evaluation patient is accompanied with his . He endorses history as above. Denies diarrhea, bloody stool, chest pain, palpitation, skin rash. Denies substance abuse 02/26-patient doing well. No overnight events. Improved tenderness vein tachycardia. Drenching sweats overnight. T-max 101. Cultures negative so far. White count 16.2. Improved renal function creatinine 1.3. Improving appetite. Able to ambulate. Continue antibiotic coverage. Will de-escalate based on culture results. at bedside. Discussed treatment plan. 02/27-patient clinically improving with white count down to 12.1, creatinine down to 1.2. T-max 100. Left lower extremity erythema/redness and swelling slightly increased. Start low-dose diuretic. Continue limb elevation. Constitutional Vitals: Vital Signs Temp Pulse Resp BP Pulse Ox 98.6 F 98 H 20 159/106 97 02/28/20 08:00 02/28/20 08:00 02/28/20 08:00 02/28/20 08:00 02/28/20 04:23 Period Temp Pulse Resp BP Sys/Alcantara Pulse Ox Last 24 Hr 98.4 F-100.0 F 70-98 14- 105-159/65-106 95-100 Intake and Output 02/27/20 02/28/20 02/28/20 21:59 05:59 13:59 Intake Total 1400 1490 50 Output Total 875 1475 400 Balance 525 15 -350 Weight 132.562 kg Alert oriented Nonlabored breathing Left lower extremity redness and swelling progressing Intake & Output: Intake & Output 02/27/20 02/28/20 02/28/20 21:59 05:59 13:59 Intake Total 1400 1490 50 Output Total 875 1475 400 Balance 525 15 -350 Weight 132.562 kg Intake: IV 1100 550 50 Sodium Chloride 0.9% 1,000 ml @ 1000 50 mls/hr IV .Q20H [facility] Rx#: [id number] Zosyn 3.375 gm In Dextrose 5% 100 50 50 in Water 50 ml @ 100 mls/hr IV Q6H [facility] Rx#:[id number] Vancomycin 1,500 mg In Sodium 500 Chloride 0.9% 500 ml @ 333.3 mls/hr IV Q12H [facility] Rx#: [id number] Oral 300 940 Output: Void Amount 875 1475 400 Other: Meal Dinner Percent of Meal Consumed 75% Feeding Ability Independent Urine Appearance Clear Clear Clear Urine Color Pale Pale Dark Yellow Urine Odor Normal Normal Stool Size Moderate Moderate Stool Color Brown Brown Stool Consistency Normal for Patient Normal for Patient OBJ DATA Labs CBC & Chem 7: 02/28/20 05:15 02/28/20 05:15 Labs: Abnormal Lab Results 02/28/20 02/28/20 02/27/20 05:15 05:15 05:10 WBC 12.1 H Gran % Lymph % (Auto) Gran # Lymph # (Auto) Seg Neutrophils % 87 H Lymphocytes % 5 L Carbon Dioxide 19 L Creatinine 1.3 H Glucose 106 H Calcium 8.5 L 8.2 L Phosphorus 2.2 L 2.0 L C-Reactive Protein Urine Protein Urine RBC 02/27/20 02/26/20 02/26/20 05:10 13:15 13:15 WBC 16.2 H 16.7 H Gran % 91.1 H Lymph % (Auto) 3.6 L Gran # 15.19 H Lymph # (Auto) 0.60 L Seg Neutrophils % 95 H Lymphocytes % 3 L Carbon Dioxide Creatinine 1.4 H Glucose 115 H Calcium Phosphorus C-Reactive Protein 22.3 H Urine Protein Urine RBC 02/26/20 13:00 WBC Gran % Lymph % (Auto) Gran # Lymph # (Auto) Seg Neutrophils % Lymphocytes % Carbon Dioxide Creatinine Glucose Calcium Phosphorus C-Reactive Protein Urine Protein 30 A Urine RBC 2 H Meds: Medications Acetaminophen (Tylenol) 650 mg PO Q4-6HP PRN; Protocol PRN Reason: Per Pain Protocol/Fever > 101 Last Admin: 02/28/20 05:31 Dose: 650 mg Documented by: Hydrocodone Bitart/Acetaminophen ([place] 5/325mg) 0 tab PO Q4HP PRN; Protocol PRN Reason: Per Pain Protocol Albuterol Sulfate (Ventolin) 1 puff INH Q6HP PRN PRN Reason: shortness of breath Bisacodyl (Dulcolax) 10 mg MT Q2-3DAYS PRN PRN Reason: Constipation Docusate Sodium (Colace) 100 mg PO BID [facility] Last Admin: 02/28/20 08:29 Dose: Not Given Documented by: Heparin Sodium (Porcine) (Heparin) 5,000 unit SQ Q12 [facility] Last Admin: 02/28/20 08:39 Dose: 5,000 unit Documented by: Magnesium Sulfate (Magnesium Sulfate) 2 gm in 50 mls @ 50 mls/hr IV UD PRN PRN Reason: MG = or < 1.7 Acetaminophen (Ofirmev) 650 mg in 65 mls @ 130 mls/hr IV Q6HP PRN; Protocol PRN Reason: Per Pain Protocol/Fever > 101 Piperacillin Sod/Tazobactam (Sod 3.375 gm/ Dextrose) 50 mls @ 100 mls/hr IV Q6H [facility]; Protocol Last Infusion: 02/28/20 06:00 Dose: Infused Documented by: Sodium Chloride (Sodium Chloride 0.9%) 1,000 mls @ 50 mls/hr IV .Q20H [facility] Last Admin: 02/27/20 17:43 Dose: 50 mls/hr Documented by: Norepinephrine Bitartrate 16 (mg/ Sodium Chloride) 250 mls @ 9.375 mls/hr IV Q24HP PRN; Protocol PRN Reason: MAP<65 Vancomycin HCl 1,500 mg/ (Sodium Chloride) 500 mls @ 333.3 mls/hr IV Q8H [facility] Ibuprofen (Motrin) 200 mg PO TID [facility]; Protocol Last Admin: 02/28/20 08:38 Dose: 200 mg Documented by: Iron Carb/Multivit/Mail List Processor/Folic Acid (Multivitamin W/Minerals) 1 tab PO DAILY [facility] Last Admin: 02/28/20 08:38 Dose: 1 tab Documented by: Melatonin (Melatonin 3mg Tablet) 3 mg PO HSP PRN PRN Reason: Insomnia Metoprolol Tartrate (Lopressor) 5 mg IV Q5M PRN PRN Reason: Heart Rate > 140 bpm Ondansetron HCl (Zofran Odt) 4 mg SL Q4-6HP PRN; Protocol PRN Reason: Nausea And Vomiting Ondansetron HCl (Zofran) 4 mg IV Q4-6HP PRN; Protocol PRN Reason: Nausea And Vomiting Polyethylene Glycol (Miralax) 17 gm PO DAILYP PRN PRN Reason: Constipation Potassium Chloride (Klor-Con) 40 meq PO DAILYP PRN PRN Reason: K+ < 3.5 Senna/Docusate Sodium (Senna Plus Tablet) 1 tab PO HS [facility] Last Admin: 02/27/20 19:40 Dose: Not Given Documented by: Sodium Chloride (Saline Flush) 10 ml IV Q8 [facility] Last Admin: 02/28/20 05:28 Dose: Not Given Documented by: Vancomycin HCl (Vancomycin Per Pharmacy) 1 order IV UD [facility]; Protocol A/P Narrative A/P Narrative: * Severe sepsis with endorgan dysfunction-White count improving. Improving endorgan dysfunction. * Left lower extremity cellulitis/lymphangitis-likely streptococcal. Clinical improvement noted on empiric antibiotic coverage on Zosyn vancomycin. Await cultures * ANNABELLA-secondary to sepsis endorgan dysfunction. Gradually improving renal function * Localized pain well controlled on as needed Tylenol/opioid * Prophylaxis heparin Plan * Continue antibiotic coverage * Low-dose diuretic * Lower extremity imaging in 24 hours if area of fluctuance noted * Limb elevation * Nutrition support/ambulation Time Spent With Patient Time: Total time spent is greater than 50% in coordination of care (as documented) at patient's floor/unit and/or counseling patient: QUALITY VTE Deep Vein Thrombosis/Pulmonary Embolism Present on Admission: No
[2020-02-28] MEDS: 0.9 % SODIUM CHLORIDE 1,000 ML IV SCH (15:23)
[2020-02-28] MEDS: SENNOSIDES/DOCUSATE SODIUM 1 TAB TABLET PO SCH (20:12)
[2020-02-29] MEDS: PIPERACILLIN SODIUM/TAZOBACTAM 3.375 GM in DEXTROSE 5% IN WATER 50 ML IV SCH ×2 (00:01→05:28)
[2020-02-29] MEDS: 0.9 % SODIUM CHLORIDE 10 ML SYRINGE IV SCH (05:36)
[2020-02-29 06:08] LABS: Hemoglobin 14.8 g/dL (13.7-17.5); Mean Cell Volume 91.1 fL (80.0-100.0); Mean Corpuscular HGB Conc 32.9 g/dL (31.0-36.0); Mean Platelet Volume 9.3 fL (7.4-10.4); Platelet Count 256 K/mcL (140-440); RBC 4.94 M/mcL (4.63-6.08); Red Cell Distribution Width 13.2 % (11.5-14.5); WBC 10.4 K/mcL (4.50-11.00)
[2020-02-29] MEDS: VANCOMYCIN 1,500 MG in 0.9 % SODIUM CHLORIDE 500 ML IV SCH (06:15)
[2020-02-29] MEDS: ACETAMINOPHEN 325 MG TABLET PO PRN (06:18)
[2020-02-29 06:47] LABS: ALT/SGPT 63 U/l (0-40); AST/SGOT 32 U/l (0-37); Albumin 3.3 gm/dL (3.2-5.2); Albumin/Globulin Ratio 0.9 (1.0-2.3); Alkaline Phosphatase 65 U/L (39-117); Bilirubin,Direct < 0.2 mg/dL (0.0-0.3); Bilirubin,Total 0.4 mg/dL (0.0-1.0); Blood Urea Nitrogen 9 mg/dl (6-20); Calcium 8.8 mg/dl (8.6-10.4); Carbon Dioxide 24 mmol/L (22-30); Chloride 101 mmol/L (96-108); Globulin 3.5 gm/dL (2.2-3.7); Glomerular Filtration Rate 73; Glucose 107 mg/dL (70-105); Lactate Dehydrogenase 193 U/L (94-250); Phosphorous 2.3 mg/dL (2.7-4.5); Triglycerides 157 mg/dl (<150); Uric Acid 3.1 mg/dL (2.5-8.0)
[2020-02-29 07:50] LABS: Band Neutrophils % 1 % (0-10); Lymphocytes % 13 % (15-49); Monocytes % (Manual) 7 % (1-12); Platelet Estimate NORMAL (NORMAL); RBC Morphology NORMAL (NORMAL); Segmented Neutrophils % 79 % (38-78)
[2020-02-29] MEDS ORDERED: FUROSEMIDE 40 MG/4 ML VIAL IV ONE (08:08)
[2020-02-29] MEDS: HEPARIN 5,000 UNIT/ML VIAL SQ SCH (08:21)
[2020-02-29] MEDS: MULTIVIT,THER IRON,CA,FA & MIN 1 TABLET PO SCH (08:22)
[2020-02-29] MEDS: IBUPROFEN 200 MG TABLET PO SCH (08:22)
--- NOTE | 2020-02-29 08:28 | Discharge Summary ---
Discharge Provider Provider Patient information: Note initiated : 02/29/20 at 8:25 am Service Date, if different from initiated Date: [] Patient: Patrick Morales 44 y/o M admitted on 02/26/20 for cellulitis left leg. Chief Complaint: [] Discharge diagnosis * Severe sepsis with endorgan dysfunction-clinically improved. White count normalized. Endorgan dysfunction resolved. * Left lower extremity cellulitis/lymphangitis-likely streptococcal/Staphylococcus. Clinical improvement noted on empiric antibiotic coverage on Zosyn vancomycin. Exudates. Transition to clindamycin/oral Keflex * ANNABELLA-secondary to sepsis endorgan dysfunction. Creatinine down to 1.2. Much improved. Discharging home with advised to follow-up with primary care physician. Brief hospital course History of present illness: Mr. Morales is a 44 year old M previously healthy with no significant prior medical history other than asthma presents to the ER with 2-day onset of worsening left lower extremity pain and swelling and over the last 24 hours relentless shaking chills, sweats, fever lightheadedness and weakness. Patient was camping in [place] few days ago and endorses to multiple bug bites lower extremity. Over the next few days he noticed increasing redness, blistering, pain along with a fever as high as 103. He presented to the minor care and was referred to the ER for further evaluation for possible sepsis/cellulitis lymphangitis Initial work-up was consistent with sepsis with tachycardia, tachypnea/fever/white count 16.7 with endorgan dysfunction with creatinine 1.4. Antibiotics were initiated , midway during antibiotic infusion blood cultures were obtained Hospitalist service was consulted for admission. At the time evaluation patient is accompanied with his . He endorses history as above. Denies diarrhea, bloody stool, chest pain, palpitation, skin rash. Denies substance abuse 02/26-patient doing well. No overnight events. Improved tenderness vein tachycardia. Drenching sweats overnight. T-max 101. Cultures negative so far. White count 16.2. Improved renal function creatinine 1.3. Improving appetite. Able to ambulate. Continue antibiotic coverage. Will de-escalate based on culture results. at bedside. Discussed treatment plan. 02/27-patient clinically improving with white count down to 12.1, creatinine down to 1.2. T-max 100. Left lower extremity erythema/redness and swelling slightly increased. Start low-dose diuretic. Continue limb elevation. 02/28-patient doing about the better. Improved redness erythema pain and swelling. Next days oral clindamycin/Keflex with advised to follow-up with [facility] care physician in 5 to 7 days. White count normalized. This resolved. Renal function improved creatinine 1.2 Date of admission: 02/26/20 16:55 Primary care physician: Arash Barber Consults: 02/26/20 Consult to Physician [CONS] Stat Comment: Consulting Provider: Geronimo Khan Reason For Exam: Physician to Consult 02/28/20 09:28 Consult to Physician [CONS] Routine Comment: cellulitis left lower leg Consulting Provider: Claude Morejon Reason For Exam: Physician to Consult Discharge Meds Discharge Medications Home Medications multivitamin 1 tab PO QDAY 08/26/17 [History Confirmed 02/26/20 Last Taken 02/25/20] albuterol sulfate 90 mcg/actuation aerosol inhaler 90 mcg INHALATION Q6H PRN #18 g 04/29/19 [Rx Confirmed 02/26/20 Last Taken 02/26/19] CPAP machine #1 ea 08/18/19 [Rx Confirmed 02/26/20 Last Taken Unknown] testosterone cypionate 200 mg/mL intramuscular oil 200 mg IM QWEEK #10 ml 12/16/19 [Rx Confirmed 02/26/20 Last Taken 02/18/20] cephalexin [Keflex] 500 mg PO Q8H #20 cap 02/29/20 [Rx Last Taken Unknown] clindamycin HCl 300 mg PO Q8 #18 cap 02/29/20 [Rx Last Taken Unknown] furosemide [Lasix] 20 mg PO QAM #2 tab 02/29/20 [Rx Last Taken Unknown] COURSE Time Spent with Patient Time attestation: Total time spent providing and/or coordinating discharge services: EXAM Constitutional Vitals: Temp Pulse Resp BP Pulse Ox 98.3 F 85 22 152/96 99 02/29/20 08:01 02/29/20 08:01 02/29/20 08:01 02/29/20 08:01 02/29/20 08:01 Discharge Data Data Completed and Pending Labs on day of discharge: Labs from last 24 hours 02/29/20 02/29/20 02/29/20 05:00 05:00 05:00 WBC 10.4 RBC 4.94 Hgb 14.8 Hct 45.0 MCV 91.1 MCH 30.0 MCHC 32.9 RDW 13.2 Plt Count 256 MPV 9.3 Total Counted 100 Seg Neutrophils % 79 H Band Neutrophils % 1 Lymphocytes % 13 L Monocytes % (Manual) 7 Platelet Estimate Normal RBC Morphology Normal Sodium 137 Potassium 3.8 Chloride 101 Carbon Dioxide 24 Anion Gap 12.0 BUN 9 Creatinine 1.2 GFR Calculation 73 Glucose 107 H Uric Acid 3.1 Calcium 8.8 Phosphorus 2.3 L Magnesium 2.3 Total Bilirubin 0.4 Direct Bilirubin < 0.2 GGT 82 H AST 32 ALT 63 H Alkaline Phosphatase 65 Lactate Dehydrogenase 193 Total Protein 6.8 Albumin 3.3 Globulin 3.5 Albumin/Globulin Ratio 0.9 L Triglycerides 157 H Vancomycin Trough 13.4 02/28/20 08:00 WBC RBC Hgb Hct MCV MCH MCHC RDW Plt Count MPV Total Counted Seg Neutrophils % Band Neutrophils % Lymphocytes % Monocytes % (Manual) Platelet Estimate RBC Morphology Sodium Potassium Chloride Carbon Dioxide Anion Gap BUN Creatinine GFR Calculation Glucose Uric Acid Calcium Phosphorus Magnesium Total Bilirubin Direct Bilirubin GGT AST ALT Alkaline Phosphatase Lactate Dehydrogenase Total Protein Albumin Globulin Albumin/Globulin Ratio Triglycerides Vancomycin Trough 6.3 Preliminary micro results at discharge 02/26/20 15:10 Blood Culture - Preliminary Blood 02/26/20 15:05 Blood Culture - Preliminary Blood Discharge Plan Patient/Caregiver Discharge Instructions Activity: increase activity as tolerated Diet: Regular Diet Activity Restrictions/Additional Instructions: Continue antibiotic for additional 7 days follow-up with PCP in 5 to 7 days Return to ER if worsening lower extremity swelling, pain fever Prescriptions: New cephalexin [Keflex] 500 mg capsule 500 mg PO Q8H Qty: 20 RF: 0 clindamycin HCl 300 MG capsule 300 mg PO Q8 Qty: 18 RF: 0 furosemide [Lasix] 20 mg tablet 20 mg PO QAM Qty: 2 RF: 0 Continued (DME) CPAP machine Qty: 1 RF: 0 testosterone cypionate 200 mg/mL oil 200 mg IM QWEEK Qty: 10 RF: 0 albuterol sulfate 90 mcg/actuation HFA aerosol inhaler 90 mcg inhalation Q6H PRN (Reason: shortness of breath) Qty: 18 RF: 0 multivitamin tablet 1 tab PO QDAY RF: 0 Follow Up Plan Follow up with: Arash Barber DO [Primary Care Provider] - Patient Disposition: Home, Self-Care Prognosis: Good Discharge Orders: Discharge Order (Routine); Ordered 02/29/20 Ordered By: Geronimo FUENTES VTE Deep Vein Thrombosis/Pulmonary Embolism Present on Admission: No
[2020-02-29] MEDS: DOCUSATE SODIUM 100 MG CAPSULE PO SCH (08:31)
== END 2020-02-29 11:25 | disposition home or self-care (01) | DRG 872 ==
LOC: ED 12:45 → ICU 16:55
PROVIDERS: ADMIT Internal Medicine; ATTEND Internal Medicine